=== PATIENT | female | born 1990 | race Two or more races ===

== ENCOUNTER 2023-09-04 21:04 | Inpatient (IN) | payer OTHER ==
[~2023-09-04] VITALS: Ht 180.3 cm; Wt 50.5 kg
[2023-09-04] MEDS ORDERED: LOPERAMIDE HCL 2 MG CAPSULE PO PRN (23:30)
[2023-09-04] MEDS ORDERED: ACETAMINOPHEN 325 MG TABLET PO PRN (23:30)
[2023-09-04 23:36] LABS: COVID AG,FIA SOURCE NASAL SWAB
[2023-09-04 23:48] LABS: PH,URINE DRUG SCREEN 6.5 (5.0-8.0)
[2023-09-04 23:50] LABS: ALCOHOL, URINE DRUG SCREEN NEGATIVE (NEGATIVE); AMPHET/METH SCREEN,URINE POSITIVE (NEGATIVE); BARBITURATE SCREEN, URINE NEGATIVE (NEGATIVE); BENZODIAZEPINES SCREEN,URINE NEGATIVE (NEGATIVE); CANNABINOID SCREEN,URINE POSITIVE (NEGATIVE); COCAINE SCREEN,URINE NEGATIVE (NEGATIVE); METHADONE SCREEN, URINE NEGATIVE (NEGATIVE); OPIATE SCREEN,URINE NEGATIVE (NEGATIVE); PHENCYCLIDINE SCREEN,URINE NEGATIVE (NEGATIVE)
[2023-09-04 23:52] LABS: SARS-COV2 (COVID) ANTIGEN,FIA Negative (Negative)
[2023-09-05] MEDS: HEPARIN SODIUM,PORCINE 5,000 UNITS/ML VIAL SQ SCH
[2023-09-05 02:23] LABS: BASOPHILS % (AUTO) 0.2 % (0.0-2.0); EOSINOPHILS % (AUTO) 0 % (1.0-6.0); HEMATOCRIT 38.1 % (36-46); HEMOGLOBIN 12.5 g/dL (12.0-16.0); LYMPHOCYTES # (AUTO) 1.2 K/uL (1.0-4.8); MEAN CORPUSCULAR HEMOGLOBIN 28.8 pg (26.0-34.0); MEAN CORPUSCULAR HGB CONC 32.9 G/dL (31.0-37.0); MEAN CORPUSCULAR VOLUME 88 fL (80-100); MONOCYTES # (AUTO) 0.3 K/uL (0.1-1.0); MONOCYTES % (AUTO) 1.7 % (2.0-9.0); NEUTROPHILS # (AUTO) 13.7 K/uL (1.8-7.7); PLATELET COUNT (AUTO) 360 K/uL (150-450); RED BLOOD CELL COUNT(AUTO) 4.35 MIL/uL (4.00-5.20); RED CELL DISTRIBUTION WIDTH 14.3 % (11.5-14.5); WHITE BLOOD COUNT (AUTO) 15.2 K/uL (4.5-11.0)
[2023-09-05 02:31] LABS: ANION GAP 10 mmol/L (8-16); CALCIUM, TOTAL 8.5 mg/dL (8.8-10.5); CARBON DIOXIDE 26 mmol/L (22-29); CHLORIDE 103 mmol/L (98-107); CREATININE 0.62 mg/dL (0.60-1.30); GLOMERULAR FILTR. RATE CALC > 60 mL/min (>60); GLUCOSE,RANDOM 116 mg/dL (70-110); NEUTROPHILS % (AUTO) 90.1 % (40.0-70.0); POTASSIUM 3.3 mmol/L (3.5-5.1); SODIUM SERUM 139 mmol/L (136-145); UREA NITROGEN, BLOOD 17 mg/dL (7-18)
[2023-09-05 02:40] LABS: ALCOHOL, BLOOD (SERUM) < 3 mg/dL (0-10)
[2023-09-05] MEDS: SODIUM CHLORIDE 0.9% 1,000 ML IV ONE (03:16)
[2023-09-05 05:30] LABS: BASOPHILS % (AUTO) 0.2 % (0.0-2.0); EOSINOPHILS % (AUTO) 0 % (1.0-6.0); HEMATOCRIT 37.5 % (36-46); HEMOGLOBIN 12.4 g/dL (12.0-16.0); LYMPHOCYTES # (AUTO) 0.9 K/uL (1.0-4.8); LYMPHOCYTES % (AUTO) 6.8 % (22.0-44.0); MEAN CORPUSCULAR HEMOGLOBIN 28.9 pg (26.0-34.0); MEAN CORPUSCULAR VOLUME 87 fL (80-100); MONOCYTES # (AUTO) 0.2 K/uL (0.1-1.0); MONOCYTES % (AUTO) 1.2 % (2.0-9.0); NEUTROPHILS # (AUTO) 11.8 K/uL (1.8-7.7); PLATELET COUNT (AUTO) 337 K/uL (150-450); RED BLOOD CELL COUNT(AUTO) 4.29 MIL/uL (4.00-5.20); WHITE BLOOD COUNT (AUTO) 12.9 K/uL (4.5-11.0)
[2023-09-05 05:35] LABS: NEUTROPHILS % (AUTO) 91.8 % (40.0-70.0)
[2023-09-05 05:46] LABS: ANION GAP 12 mmol/L (8-16); CALCIUM, TOTAL 8.5 mg/dL (8.8-10.5); CARBON DIOXIDE 24 mmol/L (22-29); CHLORIDE 104 mmol/L (98-107); CREATININE 0.65 mg/dL (0.60-1.30); GLOMERULAR FILTR. RATE CALC > 60 mL/min (>60); GLUCOSE,RANDOM 118 mg/dL (70-110); POTASSIUM 3.5 mmol/L (3.5-5.1); SODIUM SERUM 140 mmol/L (136-145); UREA NITROGEN, BLOOD 19 mg/dL (7-18)
[2023-09-05] MEDS: ONDANSETRON HCL 4 MG/2 ML VIAL IVP PRN (07:41)
[2023-09-05] MEDS: DOCUSATE SODIUM 100 MG CAPSULE PO SCH (08:21)
[2023-09-05 10:49] VITALS: BP 116/70; PULSE 43; RESP 18; TEMP 97.9
[2023-09-05 13:41] VITALS: PULSE 54
[2023-09-05 18:24] VITALS: PULSE 42
[2023-09-05 18:46] VITALS: PULSE 49
[2023-09-05 21:11] VITALS: BP 109/57; PULSE 44; RESP 18; TEMP 97.3
[2023-09-06] VITALS (7 sets, daily range): BP systolic 97–119; BP diastolic 54–69; PULSE 41–72; RESP 16–20; TEMP 97.7–98.5
[2023-09-06] MEDS: MELATONIN 3 MG TABLET PO ONE (00:15)
[2023-09-06] MEDS ORDERED: PROMETHAZINE HCL 25 MG TABLET PO PRN (13:45)
[2023-09-06] MEDS ORDERED: HydrOXYzine PAMOATE 50 MG CAPSULE PO PRN (13:45)
[2023-09-06] MEDS ORDERED: BACLOFEN 10 MG TABLET PO PRN (13:45)
[2023-09-06] MEDS ORDERED: MAG HYDROX/ALUMINUM HYD/SIMETH ES 30 ML SUSPENSION UDCUP PO PRN (13:45)
[2023-09-06] MEDS ORDERED: DICYCLOMINE HCL 10 MG CAPSULE PO PRN (13:45)
[2023-09-06] MEDS ORDERED: ACETAMINOPHEN 325 MG TABLET PO PRN (13:45)
[2023-09-06] MEDS ORDERED: LOPERAMIDE HCL 2 MG/15 ML SUSPENSION UDCUP PO PRN (13:45)
[2023-09-06] MEDS ORDERED: TraZODone HCL 50 MG TABLET PO PRN (13:45)
[2023-09-06] MEDS ORDERED: IBUPROFEN 600 MG TABLET PO PRN (13:45)
[2023-09-06] MEDS: SODIUM CHLORIDE 0.45% 1,000 ML IV SCH (14:00)
[2023-09-06] MEDS: CloNIDine HCL 0.1 MG TABLET PO SCH (14:01)
[2023-09-07 04:49] VITALS: BP 99/59; PULSE 54; RESP 18; TEMP 97.5
[2023-09-07 08:38] VITALS: BP 99/56; PULSE 57; RESP 19; TEMP 97.7
[2023-09-07] MEDS: MULTIVITAMINS, THERAPEUTIC TABLET PO SCH (09:25)
[2023-09-07 12:00] VITALS: BP 98/50; PULSE 50; RESP 16; TEMP 97.9; O2SAT 100
[2023-09-07] MEDS: LORazepam 1 MG TABLET PO PRN (12:12)
[2023-09-07 15:26] VITALS: BP 98/50; PULSE 50; RESP 18; TEMP 97.8
[2023-09-07 18:07] VITALS: BP 102/59; PULSE 47; RESP 16; TEMP 98
[2023-09-07 21:33] VITALS: BP 104/60; PULSE 47; RESP 18; TEMP 98
[2023-09-08 05:38] VITALS: BP 98/58; PULSE 46; RESP 18; TEMP 98.3
[2023-09-08 08:02] VITALS: BP 93/52; PULSE 43; RESP 19; TEMP 98.5
== END 2023-09-08 19:19 | DRG 640 ==
LOC: EMS 21:07 → EDSEX 21:07 → AHU 23:29 → 6S 09-05 09:20
PROVIDERS: ADMIT Internal Medicine; ATTEND Internal Medicine
DX: E86.0 Dehydration (principal); E43 Unspecified severe protein-calorie malnutrition; F11.93 Opioid use, unspecified with withdrawal; Z68.1 Body mass index [BMI] 19.9 or less, adult; Z20.822 Contact with and (suspected) exposure to COVID-19; F41.1 Generalized anxiety disorder; Z91.018 Allergy to other foods
CPT/HCPCS: 80048; 80307; 83735; 84443; 84703; 85025; 99285; G0378; G0480; J1644; J2405; J7030